=== PATIENT | female | born 1950 | race Caucasian/White ===

== ENCOUNTER → 2016-09-01 | Emergency (ER) | payer MEDICARE ==
[~2016-09-01] VITALS: Ht 172.7 cm; Wt 65.8 kg
[~2016-09-01] MED LIST: AZITHROMYCIN250 MG ORAL; Azithromycin 250mg tab ORAL ONE; FOLIC ACID1 MG ORAL; IBUPROFEN400 MG ORAL; METHATREXATE; PREDNISONE20 MG ORAL
[2016-09-01 23:12] VITALS: BP 119/68
[2016-09-02 00:39] VITALS: BP 125/69
[2016-09-02 00:40] VITALS: BP 125/69
--- NOTE | 2016-09-02 14:49 | Diagnostic Imaging Report ---
Clinical Indication:PAIN Technique: 3 views of the right wrist Comparison: None Findings: Slight irregularity to the triquetrum appears to be on the basis of chronic degenerative changes. No definite acute fractures or dislocations. The joint spaces are preserved Impression: No acute process
--- NOTE | 2016-09-06 12:46 | Emergency Room Report ---
History of Present Illness General Chief Complaint: Upper Extremity Injury Source: Patient Present Illness HPI Patient is a 66-year-old female brought in by family for increased right upper extremity pain. Patient is right-hand dominant. Patient reports having recently had increased swelling to her right wrist. This is associated to increase sharp pain. The patient had prior history of rheumatoid arthritis. Patient had her methotrexate dose decreased. The patient noted have increased swelling. She is followed by rheumatology. She had no relief with her current pain medications Allergies: Uncoded Allergies: PENICILLIN (Allergy, Unknown, 09/01/16) Patient History Past Medical History: see triage record Reviewed Nursing Documentation: PMH: Agreed, PSxH: Agreed Nursing Documentation-PMH Past Medical History: No History, Except For Review of Systems All Other Systems: negative except mentioned in HPI Physical Exam Vital Signs Date Time Temp Pulse Resp B/P Pulse Ox O2 Delivery O2 Flow Rate FiO2 09/01/16 22:53 97.3 67 14 119/68 99 Room Air General Appearance: well appearing, no apparent distress, alert, GCS 15 Head: normocephalic, atraumatic ENT: hearing grossly normal, normal voice Neck: full range of motion, supple Respiratory: no respiratory distress, speaking full sentences Cardiovascular #1: normal peripheral pulses Gastrointestinal: normal inspection Musculoskeletal: no calf tenderness, swelling - right wrist, good cap refill, arterial pulses brisk at ulnar and radial arteries Neurologic: normal inspection, alert, oriented x3, responsive, normal gait Psychiatric: mood/affect normal Skin: other - erythema to hand nailbeds without fluctuance or abscess Medical Decision Making Diagnostic Impression: Primary Impression: Arthritis Additional Impression: Acute paronychia ER Course Patient presented for wrist pain. Differential diagnosis included fracture, dislocation, scapphoid fracture, sprain, ganglion cyst, septic joint , arthritis, abscess among others. Wrist Xray was ordered. X-ray imaging 3 view interpreted by me showed degenerative changes without evident fracture. The patient is also noted to have some swelling to her fingers which appears to be some paronychial infections. This does not appear to require surgical drainage at this time. Patient was given oral antibiotic prescription.The patient is advised to follow up with primary care doctor in 1-2 days. Patient is advised to return if any worsening condition or if any changes in status that are concerning. Last Vital Signs Date Time Temp Pulse Resp B/P Pulse Ox O2 Delivery O2 Flow Rate FiO2 09/02/16 00:40 97.3 65 14 125/69 99 Room Air Status: improved Disposition: HOME, SELF-CARE Condition: Stable Scripts Azithromycin* (ZITHROMAX*) 250 Mg Tablet 250 MG ORAL DAILY for 4 Days, TAB 0 Refills Prov: Stuart Tolbert 09/02/16 Ibuprofen* (MOTRIN*) 400 Mg Tablet 400 MG ORAL Q8H, #30 TAB 0 Refills Prov: Stuart Tolbert 09/02/16 Prednisone* (PREDNISONE*) 20 Mg Tablet 40 MG ORAL DAILY, #10 TAB Prov: Stuart Tolbert 09/02/16 Referrals: NON PHYSICIAN (PCP) Patient Instructions: Arthritis, Paronychia Stuart Tolebrt Sep 06, 2016 12:46
== END | disposition home or self-care (01) ==
LOC: EMR 23:30
DX: L03.011 Cellulitis of right finger (principal); M19.90 Unspecified osteoarthritis, unspecified site; L03.012 Cellulitis of left finger; Z88.0 Allergy status to penicillin
CPT/HCPCS: 29260; 99283